=== PATIENT | male | born 1960 | race Two or more races ===

== ENCOUNTER 2020-06-28 20:49 | Emergency (ER) | payer OTHER ==
[~2020-06-28] VITALS: Ht 188 cm; Wt 65.8 kg
--- NOTE | 2020-06-28 20:55 | NUR ---
PT CAME TO THE ER C/O CHRONIC BACK PAIN D/T SCIATICA. PT AAOX4, VSS, RESPIRATIONS EVEN ADN UNLABORED ON RA W/ AND NOTED. PT CONNECTED TO THE MEDIA TRAFFIC MANAGER AND POX.
[2020-06-28] MEDS ORDERED: KETOROLAC TROMETHAMINE INJ 60 MG/2 ML VIAL IM ONE ×2 (22:00→22:15)
--- NOTE | 2020-06-28 22:00 | NUR ---
ASSUMED CARE FOR THIS PT
--- NOTE | 2020-06-28 22:28 | NUR ---
PT MEDICATED ORDERED
--- NOTE | 2020-06-28 22:42 | NUR ---
URBAN REYES AT BEDSIDE
--- NOTE | 2020-06-29 02:50 | NUR ---
PT GIVEN BED BATH. PT PROVIDED W/ CLOTHING. PT HAS NO COMPLAINTS AT THIS TIME. PT AAOX4, VSS, RESPIRATIONS EVEN AND UNLABORED ON RA W/ NAD NOTED. PT CONNECTED TO THE MONITOR AND POX
--- NOTE | 2020-06-29 08:56 | NUR ---
BREAKFAST TRAY PROVIDED. TOLERATED PO WELL
--- NOTE | 2020-06-29 09:18 | NUR ---
Patient discharged to home in stable condition. Written and verbal after care instructions given. Patient verbalizes understanding of instruction.
[2020-06-29 09:19] VITALS: BP 130/88
== END 2020-06-29 09:20 | disposition home or self-care (01) ==
LOC: ER 20:49
DX: M54.41 Lumbago with sciatica, right side (principal); M54.42 Lumbago with sciatica, left side; G89.29 Other chronic pain
CPT/HCPCS: 96372; 99283; J1885